=== PATIENT | female | born 1940 | race Caucasian/White ===

== ENCOUNTER 2022-12-10 08:28 | Outpatient (CLI) | payer MEDICARE, SELFPAY | END 2022-12-10 08:29 | disposition home or self-care (01) | PROVIDERS: PCP Family Medicine; Visit Provider Nurse Practitioner Family | DX: Z00.00 Encounter for general adult medical examination without abnormal findings (principal); E78.5 Hyperlipidemia, unspecified; F41.9 Anxiety disorder, unspecified | CPT/HCPCS: 80053; 80061 ==

== ENCOUNTER 2024-02-17 09:34 | Outpatient (CLI) | payer MEDICARE, SELFPAY | END 2024-02-17 09:35 | disposition home or self-care (01) | LOC: FRMREF 09:35 | PROVIDERS: PCP Family Medicine; Visit Provider Nurse Practitioner Family | DX: E78.5 Hyperlipidemia, unspecified (principal) | CPT/HCPCS: 80061 ==

== ENCOUNTER 2024-10-13 11:21 | Emergency (ER) | payer MEDICARE, SELFPAY ==
--- OUTSIDE RECORDS SUMMARY | 2007-12-28 05:19 | XMS_ITS | Continuity of Care Document ---
Author Organization [facility] Address [address] [address] [place] [address] Phone Care Team Providers Care Ice Skating Coach Name Role Phone Tung Henderson MD Unavailable Unavailable Allergies, Adverse Reactions, Alerts Substance Reaction Status Criticality No Known allergies Medications Medication Instructions Dosage Effective Dates (start - stop) Status Comments simvastatin 20 mg Tab Take one tablet by mouth daily - Active Celexa 10 mg Tab Take one tablet by mouth daily - Active Procedures Procedure Date Colonoscopy Flex; Dx (sep Pro) 08 Advance Directives Directive Yes / No Effective Date File Name No Information Encounters Encounter Description Practice Location Reason(s) For Visit Diagnoses Date Provider Providers Copied on Encounter [facility], [address] [address], [place], [place], [id number], [place] tel:[phone] [facility] Colon Cancer ScreeningColon Cancer Screening [address]. [address] [facility], [facility] [address], [place], [place], [id number] , [place]. tel:[phone] Family History Family Member Type Diagnosis Age At Onset No Information Payers Payer name Insurance type Covered libertarian ID Authoriza tion(s) No Information Social History Type Description Quantity Date Captured Comments Sex Female Smoking Status No Information Chief Complaint And Reason For Visit No Information Reason For Referral Reason For Referral No Information History Of Present Illness Encounter Date Complaint History Of Prese nt Illness No Information Functional Status Date Functional Assessmen t No Information Instructions Date Instruction Additional Infor mation No Information Assessments Type Assessment Date No Information Patient Care Teams Name Effective Dates (start - stop) Status Members No Information
--- OUTSIDE RECORDS SUMMARY | 2024-10-13 11:23 | XMS_ITS | Clinical Summary ---
Author Organization [facility] Address [address] [place] [address] Care Team Providers Care Client Relationship Executive Name Role Phone Unknown, Doctor Primary Care Provider Unavailabl e Allergies No known active allergies Medications simvastatin (ZOCOR) 20 mg tabletIndications:H yperlipidemia, unspecified hyperlipidemia type TAKE ONE (1) tablet BY MOUTH AT BEDTIME 90 tablet 2 6 Active nabumetone (RELAFEN) 750 mg tabletIndications:H ip pain, left Take 1 tablet by mouth 2 times daily with meals. 30 tablet 6 Active citalopram (CELEXA) 10 mg tabletIndications:R outine general medical examination at a health care facility Take 0.5 tablets by mouth every morning. 45 tablet 3 6 Active Active Problems Problem Noted Date Diagnosed Date Other and unspecified hyperlipidemia 04/24/2014 Family history of thyroid disease in sister 04/15 Immunizations Immunization Administration Dates Next Due Influenza, High-dose Inactivated 01/15/2016,06/2013 Influenza, IIV3 (Age >=3 years) 11/30/2011 Pneumococcal Poly,23-Valent (Pneumovax) 12/07/19 08 Pneumococcal conj 13-Valent (Prevnar 13) 015 Td (Age >=7 Years) 02/24/2005 Tdap 07/01/2015 Family History Medical History Relation Name Comments Good Health Brother Heart Disease Father 60 Heart Disease Mother 60 Good Health Sister 1 Good Health Sister 2 Thyroid Disease Sister 3 Relation Name Status Comments Brother Father Mother Sister 1 Sister 2 Sister 3 Social History Tobacco Use Types Packs/Day Years Used Date Smoking Tobacco: Never Smokeless Tobacco: Never Alcohol Use Standard Drinks/Week Comments Yes 1.7 (1 standard drink = 0.6 oz p ure alcohol) Social Connections Answer Date Recorded Frequency of Communication with Friends and Fami ly Not on file 02/17/2023 Comments No Sex and Gender Information Value Date Recorded Sex Assigned at Not on file Legal Sex Female 7:39 AM AUTO ROLLER Gender Identity Not on file Sexual Orientation Not on file Obstetrics History Last Filed Vital Signs Vital Sign Reading Time Taken Comments Blood Pressure 102/60 01/15/2016 2:16 PM AUTO ROLLER Pulse 84 07/01/2015 8:50 AM CDT Temperature 36.3 C (97.4 F) 04/24/2014 7:31 AM CDT Respiratory Rate 16 04/28/2012 1:00 PM CDT Oxygen Saturation 98% 04/28/2012 1:00 PM CDT Inhaled Oxygen Concentration - - Weight 57.6 kg (127 lb) 01/15/2016 2:16 PM AUTO ROLLER Height 162.6 cm (5' 4) 01/15/2016 2:16 PM AUTO ROLLER Body Mass Index 21.8 01/15/2016 2:16 PM AUTO ROLLER Plan of Treatment Health Maintenance Due Date Last Done Comments Depression screening for age 12+ 1952 Zoster (shingles) series for age 50+ (1 of 2) 01/06/1992 RSV vaccine for adults or (1 - 1-dose 75+ series) 2017 BMI (ht and wt on same day) for age 18+ 01/14/2017 01/15/2016, 07/01/2015 COVID-19 vaccine series ( season) 2023 Influenza Vaccine (#1) 2024 6, 12/20/2013, 11/30/2011 Tetanus booster 06/30/2025 07/01/2015, 02/24/2005, 02/24/2005 DEXA/DXA scan for age 65+ Completed 2011, 02/16/2007 Pneumococcal series for age 50+ Completed 04/24/2014, 12/07/2007 Hepatitis B series for 19+ Aged Out N o longer eligible based on patient's age to complete this topic Procedures Procedure Name Priority Date/Time Associated Diagnosis Comments SCAN-BONE DENSITOMETRY DEXA 10/22/2011 12:00 PM CDT from Last 3 Months or Most Recently Relevant to Health Maintenance Results * SCAN-BONE DENSITOMETRY DEXA (10/22/2011 12:00 PM CDT) Anatomical Region Laterality Modality Other Narrative Transcriptions Scanner - 10/22/2011 12:00 PM CDT us Scanner OTHER Final Result from Last 3 Months or Most Recently Relevant to Health Maintenance Insurance [employer] MED[employer]ARE ADVANTAGE MR Advance Directives * Full Code (Latest Code Status on File) Date Activated Date Inactivated Comments 04/28/2012 10:02 AM 04/28/2012 3:10 PM Care Teams Client Relationship Executive Relationship Specialty Start Date End Date Unknown, Doctor . PCP - General 11/19/17
[2024-10-13 11:41] VITALS: BP 116/56; PULSE 62; RESP 16; TEMP 36.2; O2SAT 98; BMI 21.1
--- NOTE | 2024-10-13 12:00 | ED_ITS ---
HPI - General Adult General Chief complaint: Extremity Pain/Injury, Upper Stated complaint: R wrist injury Time Seen by Provider: 10/13/24 11:28 History of Present Illness HPI narrative: Patient is an 84-year-old woman who was picking apples today. No word on will con apples they were. Unfortunately she stumbled over her edging and fell backwards on her right wrist. She comes in with obviously malaligned wrist. She did not hit her head. She had no presyncope or syncopal symptoms. She had no chest pain no palpitations no nausea no vomiting. She has no pain in her hand or fingers. She has no skin breakdown. Pain is moderate and localized to the right wrist. Related Data Previous Rx's ?Medication ?Instructions ?Recorded citalopram 10 mg tablet 5 mg (1/2 x 10 mg) PO QDAY # 45 tabs 02/17/24 simvastatin 20 mg tablet See Rx Instructions .Route 0 02/17/24 .COMPLEX #90 tabs Allergies Allergy/AdvReac Type Severity Reaction Status Date / Time No Known Drug Allergies Allergy Verified 10/13/24 11:41 Review of Systems Status of ROS: Reports: 10 or more systems reviewed and unremarkable except as noted in History and below [facility] Medical History History of postmenopausal hormone replacement therapy ?Z92.29 - Personal history of other drug therapy (ICD-10) Contusion ?T14.8XXA - Other injury of unspecified body region, initial encounter (ICD- 10) Surgical History History of total vaginal hysterectomy (TVH) ?Z90.710 - Acquired absence of both cervix and uterus (ICD-10) History of tonsillectomy ?Z90.89 - Acquired absence of other organs (ICD-10) History of appendectomy ?Z90.49 - Acquired absence of other specified parts of digestive tract (ICD- 10) Family History Other Coronary artery disease Heart disease Thyroid disease Social History Narrative: to her Manuel. Three adult children. Multiple grandchildren. [place] in [place]. 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 Light weights 2 to 3 times a week Two Yorkies named Librado What is your current living situation?: I presently have a place to live Problems where you live: no known problems In the past 12 months, utilities in danger of being shut off: no In past 12 months, lack of transportation kept you from medical appts, meetings, work, or getting things needed for daily living: no In the past 12 mos, have been you worried that your food would run out before you had money to buy more?: never true In the past 12 mos, the food you bought just didn't last and you didn't have money to buy more?: never true Smoking Status: Never smoker Do you use any of these nicotine containing products: None Second hand tobacco smoke exposure: No How often does anyone, including family, friends and others, physically hurt you : never How often does anyone, including family, friends and others, insult or talk down to you: never How often does anyone, including family, friends and others, threaten you with harm: never How often does anyone, including family, friends and others, scream or curse at you: never Exam Narrative: Exam Narrative: EXAM GENERAL: Patient appears comfortable and well. EYES: No scleral icterus. ENT: Tympanic membranes and oropharynx normal. THYROID: no thyroid nodules or thyromegaly. LYMPH: No supraclavicular or cervical lymphadenopathy. SKIN: Visible skin seen during exam normal or with benign process only. EXT: Obviously malaligned right wrist. HEART: Regular rate and rhythm with no murmurs, rubs, or gallops. LUNGS: Clear to auscultation bilaterally with no crackles or wheezes. ABD: Soft, non tender, non distended. PSYCH: Good eye contact, speech is not pressured. Const: Vital Signs, click to edit/add: Vital Signs - 24 hr 10/13/24 11:41 Temperature 97.2 F L Pulse Rate [Pulse Oximeter] 62 Respiratory Rate 16 Blood Pressure [Ri ght Upper Arm] 116/56 L Pulse Oximetry 98 Oxygen Delivery Me thod Room Air Course Course ED Course: Patient seen and examined. X-ray ordered. Vital Signs Vital signs: Initial Vital Signs Temperature 97.2 F L 08/29/25 11:41 Temperature Source Temporal Artery Scan 10/13/24 11:41 Pulse Rate 62 10/13/24 11:41 Respiratory Rate 16 10/13/24 11:41 Blood Pressure 116/56 L 10/13/24 11:41 Blood Pressure Mean 76 10/13/24 11:41 Blood Pressure Position Sitting 10/13/24 11:41 Pulse Oximetry 98 10/13/24 11:41 Oxygen Delivery Method Room Air 10/13/24 11:41 Vital Signs Temperature 97.2 F L 10/13/24 11:41 Pulse Rate 62 10/13/24 11:41 Respiratory Rate 16 10/13/24 11:41 Blood Pressure 116/56 L 10/13/24 11:41 Pulse Oximetry 98 10/13/24 11:41 Oxygen Delivery Method Room Air 10/13/24 11:41 Temperature 97.2 F L 10/13/24 11:41 Pulse Rate 62 10/13/24 11:41 Respiratory Rate 16 10/13/24 11:41 Blood Pressure 116/56 L 10/13/24 11:41 Pulse Oximetry 98 10/13/24 11:41 Oxygen Delivery Method Room Air 10/13/24 11:41 Medical Decision Making MDM Narrative Medical decision making narrative: Patient is a 84-year-old woman who suffered a right wrist fracture. Appears to be involving both the distal radius and ulna. Otherwise uninjured and has no open wounds. I did apply traction and place her on a short wrist splint. She is feeling better she can do Tylenol Motrin ice and I did arrange for follow-up with orthopedics. Did Discharge Plan Discharge Clinical Impression: Fracture of wrist Patient Disposition: Home, Self-Care Condition: Stable Instructions: Wrist Fracture in Adults (ED) Additional Instructions: Splint Ice Tylenol Motrin Follow-up with orthopedics this coming week. Activity Level: No Restrictions Discharge Diet: Regular Prescriptions: No Action citalopram 10 mg tablet 5 mg PO QDAY Qty: 45 3RF simvastatin 20 mg tablet See Rx Instructions .ROUTE .COMPLEX Qty: 90 3RF Dose Instruction: TAKE 1 TABLET BY MOUTH AT BEDTIME Rx Instructions: TAKE 1 TABLET BY MOUTH AT BEDTIME Follow Up/Referrals: Guillermo De La O MD [Primary Care Provider, Family Practice] Stand Alone Forms: [facility] Info Instructions
--- NOTE | 2024-10-13 12:00 | CRLHL7_ITS ---
For Patients: As a result of the Century Cures Act, medical imaging exams and procedure reports are released immediately into your electronic medical record. You may view this report before your referring provider. If you have questions, please contact your health care provider. INDICATION: Injury, not otherwise specified. COMPARISON: None available. TECHNIQUE: Three views of the right wrist. FINDINGS: Mineralization: Diffuse osteopenia. Alignment: Normal. Bones and Joints: Acute complete nondisplaced dorsally angulated distal radial metaphyseal fracture. Nondisplaced ulnar styloid fracture. Soft Tissues: Soft tissue swelling is seen about the distal forearm and wrist. IMPRESSION: Fractures of the distal radius and ulna as above. Dictated by Harsh Mcbride MD @ 10/13/2024 12:33:37 PM (Electronically Signed)
== END 2024-10-13 12:40 | disposition home or self-care (01) ==
PROVIDERS: Emergency Provider Internal Medicine; PCP Family Medicine
DX: S62.101A Fracture of unspecified carpal bone, right wrist, initial encounter for closed fracture (principal); W01.0XXA Fall on same level from slipping, tripping and stumbling without subsequent striking against object, initial encounter
CPT/HCPCS: 29125; 73110; 99283

== ENCOUNTER 2024-10-18 07:51 | Outpatient (CLI) | payer MEDICARE, SELFPAY | END 2024-10-18 07:52 | disposition home or self-care (01) | LOC: NFLDREF 10-19 07:25 | PROVIDERS: PCP Nurse Practitioner Family; Referring Provider Nurse Practitioner Family; Visit Provider Family Medicine | DX: Z01.818 Encounter for other preprocedural examination (principal) | CPT/HCPCS: 80048 ==

== ENCOUNTER 2024-10-18 08:16 | Day surgery (SDC) | payer MEDICARE, SELFPAY ==
[2024-10-18] VITALS (14 sets, daily range): BP systolic 117–153; BP diastolic 62–93; PULSE 61–80; RESP 14–16; TEMP 36.4–37.2; O2SAT 90–99; BMI 20.5
[2024-10-18] MEDS: SODIUM CHLORIDE 0.9 % (FLUSH) 10 ML SYRINGE IVF (10:10)
[2024-10-18] MEDS: LACTATED RINGERS 1000 ML 1,000 ML 100 ML IV (10:10)
--- NOTE | 2024-10-18 10:40 | SUR.PREOP ---
TIME?OUT:?1040 PT/RN/MDA?VERIFICATION?OF?SURGICAL?SITE,?PROCEDURE,?AND?CONSENT OBTAINED?PRIOR?TO?INVASIVE?PROCEDURE.
[2024-10-18] MEDS: MIDAZOLAM HCL 1 MG/ML inj IVP (10:43)
--- NOTE | 2024-10-18 10:52 | P.NB_ITS ---
Nerve Block Nerve Block Time Seen by Provider: 10:45 Date Seen: 10/18/24 Type of block requested by surgeon for post-operative analgesia: axillary Side: right Time out performed: Yes Verification of patient name: Yes Verification of date of : Yes Site marking: site marked Name of person performing procedure: Julien Continuous monitoring Was continuous monitoring of O2 sat, B/P, monitoring specialist, recorded every 15 minutes?: Yes Procedure Checklist: sterile prep, needles and gloves Ultrasound guided. Images saved: Yes Medications given in 5ml increments after negative aspiration: Ropivicaine %: 0.5 mL: 30 Needle gauge: 22 Patient tolerated procedure well: Yes Additional comments: Needle noted adjacent to nerve Block Charges Block Charge (with Pro Fee): Brachial Plexus Use of Ultrasound Machine for Block: Yes- US Guidance/pain block
--- NOTE | 2024-10-18 10:52 | P.ANES_ITS ---
Anesthesia Charges Start Date/Time Anesthesia Start Date: 10/18/24 Anesthesia Start Time: 11:23 Stop Date/Time Anesthesia Stop Date: 10/18/24 Anesthesia Stop Time: 13:06 Summary Extremes of Age - Over 70 or under 1: MDA Coding CPT Codes CPT Codes: ANESTH LOWER ARM SURGERY - 43038 ([id number]) P2 - PATIENT W/MILD SYST DISEASE, QK - LADIES LOCKER ROOM ATTENDANT 2-4 CNCRNT ANES PROC, QX - FELT HAT INSPECTOR AND PACKER SVC W/ MD MED DIRECTION Additional Codes: Summary - Extremes of Age - Over 70 or under 1: MDA ([id number])
--- NOTE | 2024-10-18 10:52 | W.ANESCHARGE ---
Anesthesia Charges Start Date/Time Anesthesia Start Date: 10/18/24 Anesthesia Start Time: 11:23 Stop Date/Time Anesthesia Stop Date: 10/18/24 Anesthesia Stop Time: 13:06 Summary Extremes of Age - Over 70 or under 1: MDA Coding CPT Codes CPT Codes: ANESTH LOWER ARM SURGERY - 94325 ([id number]) P2 - PATIENT W/MILD SYST DISEASE, QK - BUDGET ANALYST 2-4 CNCRNT ANES PROC, QX - HOLLOW TILE PARTITION ERECTOR SVC W/ MD MED DIRECTION Additional Codes: Summary - Extremes of Age - Over 70 or under 1: MDA ([id number])
--- NOTE | 2024-10-18 11:37 | W.PM.H&PU ---
History & Physical Update History & Physical Update H&P Reviewed and patient assessed: No changes noted
--- NOTE | 2024-10-18 12:32 | PM.ORPRC ---
Procedure Note Date of procedure: 10/18/24 Procedure: PREOPERATIVE DIAGNOSES: 1. Right distal radius fracture intraarticular with comminution and dorsal angulation/displacement - unstable; 3+part POSTOPERATIVE DIAGNOSES: 1. Right distal radius fracture intraarticular with comminution and dorsal angulation/displacement - unstable; 3+part NAME OF OPERATION: 1. Right distal radius open reduction with internal fixation of intraarticular fracture (3+ parts) 2. 70065 - intraoperative fluoroscopy up to 1 hour. SURGEON: Mina Weiss MD AIR POLLUTION SPECIALIST: Dk Esparza PA-C - Of note, an certified medical technician assistant was critical for this case to aide in patient positioning, limb manipulation, tissue retraction, closure, and splinting. ANESTHESIA: Supraclavicular block + MAC IMPLANTS: Synthes dual column volar locking plate with 2.7 mm proximal nonlocking cortical screw and 2.4 mm proximal locking screws and distal locking pegs. TOURNIQUET: 30 minutes at 225 torr. INDICATIONS: The patient is a pleasant, 84-year-old female who sustained a right wrist injury after a fall. They had difficulty with use of the extremity and deformity. Workup included xrays which revealed an unstable fracture. Given these findings, surgery was recommended to stablize the fracture. FINDINGS: Closed, comminuted, displaced intra-articular 3+ part distal radius fracture. PROCEDURE: Following a thorough discussion of risks, benefits, and alternatives, consent was obtained and the operative extremity was marked. The patient was brought to the operating room and placed supine on the operating table. Induction of anesthesia was achieved. Appropriate time out was performed identifying proper patient, site and procedure. 1 gram of iv Ancef was administered within 1 hour of incision preoperatively. The right upper extremity was prepped and draped in the appropriate sterile fashion using ChloraPrep prep. The limb was exsanguinated and the tourniquet inflated. A longitudinal incision was made overlying the FCR tendon. Sharp incision through skin and subcutaneous tissue allowed identification of the FCR tendon. The superficial sheath was sharply divided, the tendon retracted ulnarly, and the deep fascial sheath also released. The FPL was retracted ulnarly and the pronator quadratus was sharply released from the radial border of the radius and subperiosteally elevated. The fracture was encountered and cleared of interposed periosteum / fracture hematoma. A reduction was performed and the appropriate plate selected. Temporary stabilization allowed C-arm fluoroscopy to confirm proper fracture reduction and plate positioning. The oblong hole was filled with a nonlocking screw followed by multiple distal locking pegs being careful to keep these in subchondral bone and extraarticular. Finally, the remaining proximal shaft screws were drilled and placed. Fluoroscopic imaging confirmed the improved position and showed the fracture to be stable. At this stage, the wound was thoroughly irrigated with normal saline. Closure performed with 0 Vicryl for the pronator quadratus, followed by deflation of the tourniquet. All major bleeding points were cauterized. Closure was then completed with 3-0 Vicryl for the subcutaneous, and 4-0 statafix for subcuticular closure. Dressings were applied along with a volar/dorsal splint. The patient was awoken from anesthesia and transferred to PACU in stable condition. PLAN: 1. Elevate operative extremity. 2. Ice, acetominphen or ibuprofen PRN. 3. Oxycodone for pain as needed. 4. Follow up with me in 10-16 days for wound check and splint removal. Apply short-arm cast. Return at the 3 week kelly postop for all cast/splint immobilization removal. Transition to a wrist brace and initiate occupational therapy at that 3 week kelly.
--- NOTE | 2024-10-18 13:14 | P.ANES_ITS ---
Anesthesia Charges Start Date/Time Anesthesia Start Date: 10/18/24 Anesthesia Start Time: 11:23 Stop Date/Time Anesthesia Stop Date: 10/18/24 Anesthesia Stop Time: 13:06 Summary Extremes of Age - Over 70 or under 1: MAIL HANDLER SORTER Coding CPT Codes CPT Codes: ANESTH LOWER ARM SURGERY - 92264 ([id number]) P2 - PATIENT W/MILD SYST DISEASE, QK - POSTAL TRANSPORTATION CLERK 2-4 CNCRNT ANES PROC Additional Codes: Summary - Extremes of Age - Over 70 or under 1: MAIL HANDLER SORTER ([id number])
--- NOTE | 2024-10-18 13:14 | W.ANESCHARGE ---
Anesthesia Charges Start Date/Time Anesthesia Start Date: 10/18/24 Anesthesia Start Time: 11:23 Stop Date/Time Anesthesia Stop Date: 10/18/24 Anesthesia Stop Time: 13:06 Summary Extremes of Age - Over 70 or under 1: DIRECTOR OF OCCUPATIONAL THERAPY Coding CPT Codes CPT Codes: ANESTH LOWER ARM SURGERY - 97025 ([id number]) P2 - PATIENT W/MILD SYST DISEASE, QK - WASTE PICKER 2-4 CNCRNT ANES PROC Additional Codes: Summary - Extremes of Age - Over 70 or under 1: DIRECTOR OF OCCUPATIONAL THERAPY ([id number])
== END 2024-10-18 14:27 | disposition home or self-care (01) ==
LOC: OR 08:17
PROVIDERS: PCP Nurse Practitioner Family; Visit Provider Orthopaedic Surgery Sports Medicine
PROC: (CPT 25575; principal; 2024-10-18 10:45)
DX: S52.571A Other intraarticular fracture of lower end of right radius, initial encounter for closed fracture (principal); G89.18 Other acute postprocedural pain
CPT/HCPCS: 25609; 01830; 64415; 73110; 76000; 76942; 99100; C1713; J0690; J2250; J2405; J2704; J2795; J3010; J7120